=== PATIENT | male | born 1970 | race Caucasian/White ===

== ENCOUNTER 2016-11-22 21:19 | Emergency (ER) | payer MEDICARE ==
[~2016-11-22] VITALS: Ht 180.3 cm; Wt 90.0 kg
[~2016-11-22 21:19] MED LIST: LISI-662 PO; METF500T4 PO; PREG50 PO
[2016-11-22 21:37] LABS: GLUCOSE,POINT OF CARE 194 MG/DL (70-110)
[2016-11-22] MEDS ORDERED: AMOX TR/POT CLAV 875 MG/125 MG TABLET PO ONE (22:30)
[2016-11-22] MEDS ORDERED: HYDROmorphone 2 MG/ML SYRINGE IM ONE (22:30)
[2016-11-22] MEDS ORDERED: BACITRACIN 0.9 GM PACKET OINTMENT TP ONE (22:30)
[2016-11-22 22:38] VITALS: BP 121/78
== END 2016-11-22 22:41 | disposition home or self-care (01) ==
LOC: EMS 21:22
DX: L08.89 Other specified local infections of the skin and subcutaneous tissue (principal); E11.9 Type 2 diabetes mellitus without complications; I10 Essential (primary) hypertension; F17.210 Nicotine dependence, cigarettes, uncomplicated
CPT/HCPCS: 82962; 96372; 99283; J1170

== ENCOUNTER 2016-11-24 18:58 | Emergency (ER) | payer MEDICARE ==
[~2016-11-24] VITALS: Ht 177.8 cm; Wt 90.9 kg
[2016-11-24 19:36] LABS: GLUCOSE,POINT OF CARE 292 MG/DL (70-110)
[2016-11-24] MEDS ORDERED: TraMADol HCL 50 MG TABLET PO ONE (21:15)
[2016-11-24 22:24] VITALS: BP 133/94
== END 2016-11-24 22:31 | disposition home or self-care (01) ==
LOC: EMS 19:05
DX: S81.801A Unspecified open wound, right lower leg, initial encounter (principal); E11.65 Type 2 diabetes mellitus with hyperglycemia; I10 Essential (primary) hypertension; F17.210 Nicotine dependence, cigarettes, uncomplicated; X58.XXXA Exposure to other specified factors, initial encounter; Y93.E1 Activity, personal bathing and showering; Y92.89 Other specified places as the place of occurrence of the external cause; Y99.8 Other external cause status
CPT/HCPCS: 82962; 99283

== ENCOUNTER 2020-11-13 12:59 | Emergency (ER) | payer MEDICARE ==
[~2020-11-13] VITALS: Ht 175.3 cm; Wt 86.4 kg
[~2020-11-13 12:59] MED LIST changes: +AMLO10TA55 PO; +ASPI81TA39 PO; +ATOR40TA28 PO; -LISI-662 PO; +METF-960 PO; -METF500T4 PO; -PREG50 PO
[2020-11-13 13:04] VITALS: BP 126/86
== END 2020-11-13 15:25 | disposition left against medical advice (07) ==
LOC: EMS 13:07
DX: R21 Rash and other nonspecific skin eruption (principal); Z53.21 Procedure and treatment not carried out due to patient leaving prior to being seen by health care provider
CPT/HCPCS: 82962

== ENCOUNTER 2020-11-19 05:04 | Emergency (ER) | payer MEDICARE ==
[~2020-11-19] VITALS: Ht 180.3 cm; Wt 84.1 kg
[2020-11-19 06:25] LABS: GLUCOSE,POINT OF CARE 189 MG/DL (70-110)
[2020-11-19] MEDS ORDERED: DiphenhydrAMINE HCL 50 MG/ML VIAL IVP ONE (06:30)
[2020-11-19] MEDS ORDERED: METOCLOPRAMIDE HCL 5 MG/ML 2 ML VIAL IVP ONE (06:30)
[2020-11-19] MEDS ORDERED: KETOROLAC TROMETHAMINE 30 MG/ML VIAL IVP ONE (06:30)
[2020-11-19] MEDS ORDERED: SODIUM CHLORIDE 0.9% 1,000 ML IV ONE (06:30)
[2020-11-19 07:30] VITALS: BP 145/103
== END 2020-11-19 07:50 | disposition home or self-care (01) ==
LOC: EMS 05:05
DX: R51.9 Headache, unspecified (principal); E11.9 Type 2 diabetes mellitus without complications; I10 Essential (primary) hypertension; G89.29 Other chronic pain; F17.210 Nicotine dependence, cigarettes, uncomplicated; F12.90 Cannabis use, unspecified, uncomplicated; F19.90 Other psychoactive substance use, unspecified, uncomplicated; Z86.73 Personal history of transient ischemic attack (TIA), and cerebral infarction without residual deficits; Z90.89 Acquired absence of other organs; Z79.84 Long term (current) use of oral hypoglycemic drugs; Z79.82 Long term (current) use of aspirin
CPT/HCPCS: 70450; 82962; 96361; 96374; 96375; 99284; J1200; J1885; J2765; J7030

== ENCOUNTER 2022-02-11 02:38 | Emergency (ER) | payer MEDICARE, MEDICAID ==
[~2022-02-11] VITALS: Ht 177.8 cm; Wt 83.4 kg
[~2022-02-11 02:38] MED LIST changes: +METF-1211 PO; -METF-960 PO
[2022-02-11] MEDS ORDERED: ONDANSETRON HCL 4 MG/2 ML VIAL ONE (02:54)
[2022-02-11] MEDS ORDERED: SODIUM CHLORIDE 0.9% 1,000 ML IV ONE ×2 (03:00→03:45)
[2022-02-11] MEDS ORDERED: ONDANSETRON HCL 4 MG/2 ML VIAL IVP ONE (03:00)
[2022-02-11] MEDS ORDERED: IOHEXOL 350 MG/ML 100 ML VIAL ONE (03:11)
[2022-02-11 03:28] LABS: BASOPHILS % (AUTO) 0.1 % (0.0-2.0); EOSINOPHILS % (AUTO) 3.4 % (1.0-6.0); HEMATOCRIT 44.5 % (41-53); HEMOGLOBIN 14.8 g/dL (13.5-17.5); LYMPHOCYTES # (AUTO) 1.1 K/uL (1.0-4.8); LYMPHOCYTES % (AUTO) 24.4 % (22.0-44.0); MEAN CORPUSCULAR HEMOGLOBIN 31.6 pg (26.0-34.0); MEAN CORPUSCULAR HGB CONC 33.4 G/dL (31.0-37.0); MEAN CORPUSCULAR VOLUME 95 fL (80-100); MONOCYTES # (AUTO) 0.7 K/uL (0.1-1.0); MONOCYTES % (AUTO) 15.7 % (2.0-9.0); NEUTROPHILS # (AUTO) 2.6 K/uL (1.8-7.7); NEUTROPHILS % (AUTO) 56.4 % (40.0-70.0); PLATELET COUNT (AUTO) 245 K/uL (150-450); RED BLOOD CELL COUNT(AUTO) 4.69 MIL/uL (4.50-5.90); RED CELL DISTRIBUTION WIDTH 13.8 % (11.5-14.5)
[2022-02-11 03:37] LABS: INR 1.1 (0.9-1.1); PROTHROMBIN TIME 11.8 SEC (9.4-11.6)
[2022-02-11 03:42] LABS: ANION GAP 5 mmol/L (8-16); CALCIUM, TOTAL 9.2 mg/dL (8.8-10.5); CARBON DIOXIDE 28 mmol/L (22-29); CHLORIDE 103 mmol/L (98-107); CREATININE 1.27 mg/dL (0.60-1.30); GLUCOSE,RANDOM 205 mg/dL (70-110); POTASSIUM 3.7 mmol/L (3.5-5.1); SODIUM SERUM 136 mmol/L (136-145); UREA NITROGEN, BLOOD 13 mg/dL (7-18)
[2022-02-11 03:43] LABS: GLOMERULAR FILTR. RATE CALC > 60 mL/min (>60)
[2022-02-11] MEDS ORDERED: HYDROmorphone HCL 2 MG/ML SYRINGE IVP ONE (03:45)
[2022-02-11 03:50] LABS: ALANINE AMINOTRANSFERASE 42 U/L (12-78); ALBUMIN 3.8 g/dL (3.4-5.0); ALKALINE PHOSPHATASE 82 U/L (46-116); ASPARTATE AMINOTRANSFERASE 26 U/L (15-37); BILIRUBIN,TOTAL 0.2 mg/dL (0.1-1.0); TOTAL PROTEIN, SERUM 7.8 g/dL (6.4-8.2)
[2022-02-11 05:20] LABS: COVID AG,FIA SOURCE NASAL SWAB
[2022-02-11 05:32] LABS: AMPHET/METH SCREEN,URINE POSITIVE (NEGATIVE); BARBITURATE SCREEN, URINE NEGATIVE (NEGATIVE); BENZODIAZEPINES SCREEN,URINE NEGATIVE (NEGATIVE); CANNABINOID SCREEN,URINE POSITIVE (NEGATIVE); COCAINE SCREEN,URINE NEGATIVE (NEGATIVE); METHADONE SCREEN, URINE NEGATIVE (NEGATIVE); OPIATE SCREEN,URINE POSITIVE (NEGATIVE)
[2022-02-11 05:52] LABS: APPEARANCE,URINE CLEAR (CLEAR)
[2022-02-11 05:53] LABS: PROTEIN,URINE NEGATIVE (NEGATIVE); SPECIFIC GRAVITIY, URINE 1.005 (1.003-1.030)
[2022-02-11 05:54] LABS: GLUCOSE, URINE (UA) NEGATIVE (NEGATIVE)
[2022-02-11 05:55] LABS: BILIRUBIN,URINE NEGATIVE (NEGATIVE); KETONES,URINE NEGATIVE (NEGATIVE)
[2022-02-11 05:56] LABS: LEUKOCYTE ESTERASE ,URINE SMALL (NEGATIVE); NITRATE,URINE NEGATIVE (NEGATIVE); UROBILINOGEN,URINE <=1.0 mg/dL (<=1.0)
[2022-02-11 06:00] LABS: BACTERIA,URINE Rare /HPF (None Seen); OCCULT BLOOD,URINE NEGATIVE (NEGATIVE); RBC,URINE None Seen /HPF (0-2); SQUAMOUS EPITHELIAL CELL,UR Few /LPF (None Seen); WBC,URINE 0-2 /HPF (0-5)
[2022-02-11] MEDS ORDERED: ASPIRIN 325 MG TABLET PO ONE (06:00)
[2022-02-11 06:02] LABS: PHENCYCLIDINE SCREEN,URINE NEGATIVE (NEGATIVE)
[2022-02-11] MEDS ORDERED: METOCLOPRAMIDE HCL 5 MG/ML 2 ML VIAL IVP ONE (06:15)
[2022-02-11 07:05] VITALS: BP 149/92
[2022-02-11] MEDS ORDERED: OXYGEN THERAPY IH SCH (08:00)
== END 2022-02-11 08:30 | disposition short-term general hospital (02) ==
LOC: EMS 02:39
DX: R41.82 Altered mental status, unspecified (principal); Z20.822 Contact with and (suspected) exposure to COVID-19; E11.65 Type 2 diabetes mellitus with hyperglycemia; F10.20 Alcohol dependence, uncomplicated; F12.90 Cannabis use, unspecified, uncomplicated; F15.10 Other stimulant abuse, uncomplicated; F17.210 Nicotine dependence, cigarettes, uncomplicated; I10 Essential (primary) hypertension; K21.9 Gastro-esophageal reflux disease without esophagitis; R53.1 Weakness; K52.9 Noninfective gastroenteritis and colitis, unspecified; R11.10 Vomiting, unspecified; R29.810 Facial weakness; R10.84 Generalized abdominal pain; Z86.73 Personal history of transient ischemic attack (TIA), and cerebral infarction without residual deficits; Z90.49 Acquired absence of other specified parts of digestive tract
CPT/HCPCS: 99291; 71250; 96374; 71045; 96375; 96361; 87426; 80053; 81001; 84484; 85025; 85610; 85730; 36415; 74150; 70496; 70498; 82948; 93005; 70450; 72192; 80307 ×2; J1170; J2765; J2405; Q9967; J7030

== ENCOUNTER 2022-02-26 23:49 | Emergency (ER) | payer MEDICARE, MEDICAID ==
[~2022-02-26] VITALS: Ht 180.3 cm; Wt 82.0 kg
[2022-02-27] MEDS ORDERED: BUPR300T53 PO (00:08)
[2022-02-27] MEDS ORDERED: LISI-893 PO (00:09)
[2022-02-27 00:12] LABS: BASOPHILS % (AUTO) 0.1 % (0.0-2.0); EOSINOPHILS % (AUTO) 7.9 % (1.0-6.0); HEMATOCRIT 47.5 % (41-53); HEMOGLOBIN 16.1 g/dL (13.5-17.5); LYMPHOCYTES # (AUTO) 1.6 K/uL (1.0-4.8); LYMPHOCYTES % (AUTO) 29.5 % (22.0-44.0); MEAN CORPUSCULAR HEMOGLOBIN 31.7 pg (26.0-34.0); MEAN CORPUSCULAR HGB CONC 33.9 G/dL (31.0-37.0); MEAN CORPUSCULAR VOLUME 94 fL (80-100); MONOCYTES # (AUTO) 0.8 K/uL (0.1-1.0); MONOCYTES % (AUTO) 14.9 % (2.0-9.0); NEUTROPHILS # (AUTO) 2.5 K/uL (1.8-7.7); NEUTROPHILS % (AUTO) 47.6 % (40.0-70.0); PLATELET COUNT (AUTO) 243 K/uL (150-450); RED BLOOD CELL COUNT(AUTO) 5.07 MIL/uL (4.50-5.90)
[2022-02-27 00:23] LABS: ANION GAP 10 mmol/L (8-16); CALCIUM, TOTAL 9.2 mg/dL (8.8-10.5); CARBON DIOXIDE 28 mmol/L (22-29); CHLORIDE 101 mmol/L (98-107); CREATININE 1.39 mg/dL (0.60-1.30); GLUCOSE,RANDOM 199 mg/dL (70-110); SODIUM SERUM 139 mmol/L (136-145); UREA NITROGEN, BLOOD 23 mg/dL (7-18)
[2022-02-27] MEDS ORDERED: METO25TA3 PO (00:26)
[2022-02-27] MEDS ORDERED: SILD50TA PO (00:26)
[2022-02-27 00:27] LABS: GLOMERULAR FILTR. RATE CALC > 60 mL/min (>60)
[2022-02-27 00:29] LABS: ALANINE AMINOTRANSFERASE 39 U/L (12-78); ALBUMIN 3.9 g/dL (3.4-5.0); ALKALINE PHOSPHATASE 83 U/L (46-116); ASPARTATE AMINOTRANSFERASE 24 U/L (15-37); BILIRUBIN,TOTAL 0.4 mg/dL (0.1-1.0); INR 1.1 (0.9-1.1); PROTHROMBIN TIME 11.3 SEC (9.4-11.6); TOTAL PROTEIN, SERUM 8.4 g/dL (6.4-8.2)
[2022-02-27] MEDS ORDERED: MORPHINE SULFATE 4 MG/ML SYRINGE IVP ONE ×2 (01:30→02:15)
[2022-02-27] MEDS ORDERED: ONDANSETRON HCL 4 MG/2 ML VIAL IVP ONE ×2 (01:30→04:00)
[2022-02-27 01:39] LABS: COVID AG,FIA SOURCE NASAL SWAB
[2022-02-27] MEDS ORDERED: ACETAMINOPHEN 325 MG TABLET PO PRN (01:45)
[2022-02-27] MEDS ORDERED: ONDANSETRON HCL 4 MG/2 ML VIAL IVP PRN (01:45)
[2022-02-27] MEDS ORDERED: CefTRIAXone 1 GM/DEXTROSE 50 ML IV SCH (02:00)
[2022-02-27] MEDS ORDERED: INSULIN LISPRO 100 UNITS/ML SQ PRN (02:00)
[2022-02-27] MEDS ORDERED: DEXTROSE 50%-WATER 25 GM/50 ML SYRINGE IVP PRN (02:00)
[2022-02-27] MEDS ORDERED: AZITHROMYCIN 500 MG/NS 250 ML IV SCH (03:00)
[2022-02-27 05:24] VITALS: BP 124/66
[2022-02-27] MEDS ORDERED: HEPARIN SODIUM,PORCINE 5,000 UNITS/ML VIAL SQ SCH (08:00)
[2022-02-27] MEDS ORDERED: BuPROPion HCL XL 150 MG ER TABLET PO SCH (09:00)
[2022-02-27] MEDS ORDERED: AmLODIPine BESYLATE 10 MG TABLET PO SCH (09:00)
[2022-02-27] MEDS ORDERED: ATORVASTATIN CALCIUM 40 MG TABLET PO SCH (09:00)
[2022-02-27] MEDS ORDERED: ASPIRIN 81 MG CHEWABLE TABLET PO SCH (09:00)
[2022-02-27] MEDS ORDERED: METOPROLOL SUCCINATE 25 MG ER TABLET PO SCH (09:00)
[2022-02-27] MEDS ORDERED: INSULIN GLARGINE,HUM.REC.ANLOG 100 UNITS/ML SQ SCH (21:00)
== END 2022-02-27 05:55 | disposition short-term general hospital (02) ==
LOC: EMS 23:49
DX: I63.9 Cerebral infarction, unspecified (principal); I10 Essential (primary) hypertension; E11.9 Type 2 diabetes mellitus without complications; G43.909 Migraine, unspecified, not intractable, without status migrainosus; F17.210 Nicotine dependence, cigarettes, uncomplicated; F12.90 Cannabis use, unspecified, uncomplicated; F15.90 Other stimulant use, unspecified, uncomplicated; Z90.49 Acquired absence of other specified parts of digestive tract; Z98.890 Other specified postprocedural states
CPT/HCPCS: 80053; 83605; 83880; 84484; 85025; 85610; 85730; 87040; 86850; 86900; 86901; 36415; 71045; 70496; 70498; 82948; 93005; 99291; 87426; 70450; 82962; 71250; 72192; 74150; 96365; 96367; 96375; J0456; J0696; J2270; J2405

== ENCOUNTER 2022-07-01 21:29 | Emergency (ER) | payer MEDICARE, MEDICAID ==
[~2022-07-01] VITALS: Ht 185.4 cm; Wt 80.3 kg
[~2022-07-01 21:29] MED LIST changes: +BUPR300T53 PO; +LISI-893 PO; +METO25TA3 PO; +SILD50TA PO
[2022-07-01] MEDS ORDERED: NALOXONE HCL 1 MG/ML 2 ML SYRINGE IM ONE (21:45)
[2022-07-01] MEDS ORDERED: LABETALOL HCL 5 MG/ML 20 ML VIAL IVP PRN ×2 (21:45)
[2022-07-01] MEDS ORDERED: ONDANSETRON HCL 4 MG/2 ML VIAL IVP ONE (21:45)
[2022-07-01] MEDS ORDERED: SODIUM CHLORIDE 0.9% 1,000 ML IV ONE (21:45)
[2022-07-01 22:02] LABS: BASOPHILS % (AUTO) 0.2 % (0.0-2.0); EOSINOPHILS % (AUTO) 1.7 % (1.0-6.0); HEMATOCRIT 48.8 % (41-53); HEMOGLOBIN 16.5 g/dL (13.5-17.5); LYMPHOCYTES # (AUTO) 1.4 K/uL (1.0-4.8); LYMPHOCYTES % (AUTO) 17.4 % (22.0-44.0); MEAN CORPUSCULAR HEMOGLOBIN 31.9 pg (26.0-34.0); MEAN CORPUSCULAR HGB CONC 33.7 G/dL (31.0-37.0); MEAN CORPUSCULAR VOLUME 95 fL (80-100); MONOCYTES # (AUTO) 0.8 K/uL (0.1-1.0); MONOCYTES % (AUTO) 9.7 % (2.0-9.0); NEUTROPHILS # (AUTO) 5.7 K/uL (1.8-7.7); PLATELET COUNT (AUTO) 186 K/uL (150-450); RED BLOOD CELL COUNT(AUTO) 5.16 MIL/uL (4.50-5.90); RED CELL DISTRIBUTION WIDTH 13.6 % (11.5-14.5)
[2022-07-01 22:14] LABS: ANION GAP 8 mmol/L (8-16); CALCIUM, TOTAL 9.4 mg/dL (8.8-10.5); CARBON DIOXIDE 29 mmol/L (22-29); CHLORIDE 101 mmol/L (98-107); CREATININE 1.17 mg/dL (0.60-1.30); GLOMERULAR FILTR. RATE CALC > 60 mL/min (>60); GLUCOSE,RANDOM 127 mg/dL (70-110); POTASSIUM 3.9 mmol/L (3.5-5.1); PROTHROMBIN TIME 10.7 SEC (9.4-11.6); SODIUM SERUM 138 mmol/L (136-145)
[2022-07-01 22:38] LABS: ALANINE AMINOTRANSFERASE 38 U/L (12-78); ALBUMIN 4.2 g/dL (3.4-5.0); ALKALINE PHOSPHATASE 68 U/L (46-116); ASPARTATE AMINOTRANSFERASE 22 U/L (15-37); BILIRUBIN,TOTAL 0.7 mg/dL (0.1-1.0); CREATINE KINASE, TOTAL ONLY 221 U/L (39-308); TOTAL PROTEIN, SERUM 8.8 g/dL (6.4-8.2)
[2022-07-01] MEDS ORDERED: ASPIRIN 81 MG CHEWABLE TABLET PO ONE (22:45)
[2022-07-02 02:52] LABS: COVID AG,FIA SOURCE NASOPHARYNGEAL
[2022-07-02 03:05] LABS: APPEARANCE,URINE CLEAR (CLEAR); BILIRUBIN,URINE NEGATIVE (NEGATIVE); GLUCOSE, URINE (UA) NEGATIVE (NEGATIVE); LEUKOCYTE ESTERASE ,URINE NEGATIVE (NEGATIVE); NITRATE,URINE NEGATIVE (NEGATIVE); OCCULT BLOOD,URINE NEGATIVE (NEGATIVE); PROTEIN,URINE 30-70 mg/dL (NEGATIVE); UROBILINOGEN,URINE <=1.0 mg/dL (<=1.0)
[2022-07-02 03:09] VITALS: BP 129/93
[2022-07-02 03:12] LABS: AMPHET/METH SCREEN,URINE POSITIVE (NEGATIVE); BARBITURATE SCREEN, URINE NEGATIVE (NEGATIVE); BENZODIAZEPINES SCREEN,URINE NEGATIVE (NEGATIVE); CANNABINOID SCREEN,URINE NEGATIVE (NEGATIVE); COCAINE SCREEN,URINE NEGATIVE (NEGATIVE); METHADONE SCREEN, URINE NEGATIVE (NEGATIVE); OPIATE SCREEN,URINE NEGATIVE (NEGATIVE); PHENCYCLIDINE SCREEN,URINE POSITIVE (NEGATIVE)
[2022-07-02 03:17] LABS: BACTERIA,URINE None Seen /HPF (None Seen); RBC,URINE 0-2 /HPF (0-2); WBC,URINE 0-2 /HPF (0-5)
[2022-07-02 03:18] LABS: AMORPHOUS SEDIMENT,UR Few /LPF (None Seen); SQUAMOUS EPITHELIAL CELL,UR Few /LPF (None Seen)
== END 2022-07-02 05:31 | disposition short-term general hospital (02) ==
LOC: EMS 21:30
DX: G45.9 Transient cerebral ischemic attack, unspecified (principal); E11.9 Type 2 diabetes mellitus without complications; I10 Essential (primary) hypertension; G89.29 Other chronic pain; F17.210 Nicotine dependence, cigarettes, uncomplicated; F12.90 Cannabis use, unspecified, uncomplicated; F15.90 Other stimulant use, unspecified, uncomplicated; Z90.49 Acquired absence of other specified parts of digestive tract; Z98.890 Other specified postprocedural states
CPT/HCPCS: 99291; 70496; 96374; 71045; 96361; 87426; 80053; 81001; 82550; 84484; 85025; 85610; 85730; 86850; 86900; 86901; 36415; 70498; 82948; 93005; 96372; 70450; 80307 ×2; G0480; J2310; J2405; J7030

== ENCOUNTER 2022-08-02 12:30 | Inpatient (IN) | payer MEDICARE, MEDICAID ==
[~2022-08-02] VITALS: Ht 190.5 cm; Wt 85.8 kg
[2022-08-02] MEDS ORDERED: ONDANSETRON HCL 4 MG/2 ML VIAL ONE (12:35)
[2022-08-02] MEDS ORDERED: NALOXONE HCL 1 MG/ML 2 ML SYRINGE ONE (12:36)
[2022-08-02] MEDS ORDERED: SODIUM CHLORIDE 0.9% 100 ML ONE ×3 (12:37→13:08)
[2022-08-02] MEDS ORDERED: IOHEXOL 350 MG/ML 100 ML VIAL ONE ×3 (12:37→13:08)
[2022-08-02] MEDS ORDERED: PANT40TA54 PO (12:38)
[2022-08-02] MEDS ORDERED: ASPI-1444 PO (12:38)
[2022-08-02] MEDS ORDERED: ALBU18HF12 IH (12:38)
[2022-08-02] MEDS ORDERED: ONDANSETRON HCL 4 MG/2 ML VIAL IVP ONE (12:45)
[2022-08-02] MEDS ORDERED: NALOXONE HCL 1 MG/ML 2 ML SYRINGE IVP ONE (12:45)
[2022-08-02 13:00] LABS: BASOPHILS % (AUTO) 0.1 % (0.0-2.0); HEMATOCRIT 46.8 % (41-53); HEMOGLOBIN 15.6 g/dL (13.5-17.5); LYMPHOCYTES # (AUTO) 1.4 K/uL (1.0-4.8); LYMPHOCYTES % (AUTO) 7.7 % (22.0-44.0); MEAN CORPUSCULAR HEMOGLOBIN 31.8 pg (26.0-34.0); MEAN CORPUSCULAR HGB CONC 33.4 G/dL (31.0-37.0); MEAN CORPUSCULAR VOLUME 95 fL (80-100); MONOCYTES # (AUTO) 1.6 K/uL (0.1-1.0); MONOCYTES % (AUTO) 8.3 % (2.0-9.0); NEUTROPHILS # (AUTO) 15.6 K/uL (1.8-7.7); NEUTROPHILS % (AUTO) 82.9 % (40.0-70.0); PLATELET COUNT (AUTO) 188 K/uL (150-450); RED BLOOD CELL COUNT(AUTO) 4.92 MIL/uL (4.50-5.90); RED CELL DISTRIBUTION WIDTH 13.7 % (11.5-14.5)
[2022-08-02 13:10] LABS: ANION GAP 9 mmol/L (8-16); CALCIUM, TOTAL 9.5 mg/dL (8.8-10.5); CARBON DIOXIDE 28 mmol/L (22-29); CHLORIDE 100 mmol/L (98-107); CREATININE 1.16 mg/dL (0.60-1.30); GLOMERULAR FILTR. RATE CALC > 60 mL/min (>60); GLUCOSE,RANDOM 268 mg/dL (70-110); POTASSIUM 3.9 mmol/L (3.5-5.1); SODIUM SERUM 137 mmol/L (136-145)
[2022-08-02 13:15] LABS: PROTHROMBIN TIME 10.3 SEC (9.4-11.6)
[2022-08-02 13:20] LABS: B-TYPE NATRIURETIC PEPTIDE 23 pg/mL (0-100)
[2022-08-02 13:25] LABS: LACTIC ACID 1.3 mmol/L (0.4-2.0)
[2022-08-02 13:27] LABS: ALANINE AMINOTRANSFERASE 26 U/L (12-78); ALKALINE PHOSPHATASE 71 U/L (46-116); ASPARTATE AMINOTRANSFERASE 19 U/L (15-37); BILIRUBIN,TOTAL 0.4 mg/dL (0.1-1.0); CREATINE KINASE, TOTAL ONLY 265 U/L (39-308); LIPASE 337 U/L (73-393); TOTAL PROTEIN, SERUM 8.2 g/dL (6.4-8.2)
[2022-08-02] MEDS: OXYGEN THERAPY IH SCH ×2 (13:42→20:42)
[2022-08-02] MEDS ORDERED: LORazepam 2 MG/ML VIAL IVP ONE (14:15)
[2022-08-02] MEDS ORDERED: METOCLOPRAMIDE HCL 5 MG/ML 2 ML VIAL IVP ONE (14:30)
[2022-08-02] MEDS ORDERED: SODIUM CHLORIDE 0.9% 1,000 ML IV ONE ×2 (14:30→15:30)
[2022-08-02] MEDS ORDERED: HydrALAZINE HCL 20 MG/ML VIAL IVP PRN (15:30)
[2022-08-02] MEDS ORDERED: ONDANSETRON HCL 4 MG/2 ML VIAL IVP PRN (15:30)
[2022-08-02] MEDS ORDERED: ACETAMINOPHEN 325 MG TABLET PO PRN (15:30)
[2022-08-02] MEDS ORDERED: DEXTROSE 50%-WATER 25 GM/50 ML SYRINGE IVP PRN ×2 (15:30)
[2022-08-02] MEDS ORDERED: INSULIN LISPRO 100 UNITS/ML SQ PRN (15:30)
[2022-08-02 16:00] VITALS: BP 137/75; PULSE 107; RESP 16; TEMP 98.9
[2022-08-02] MEDS ORDERED: PIPERACILLIN/TAZO 3.375 GM/D5W 50 ML IV ONE (16:00)
[2022-08-02] MEDS ORDERED: SODIUM CHLORIDE 0.9% 250 ML IV ONE (17:12)
[2022-08-02] MEDS: INSULIN LISPRO 100 UNITS/ML SQ PRN ×2 (17:13→20:45)
[2022-08-02] MEDS: HEPARIN SODIUM,PORCINE 5,000 UNITS/ML VIAL SQ SCH ×2 (17:15→23:43)
[2022-08-02 18:11] LABS: GLUCOSE,POINT OF CARE 212 MG/DL (70-110)
[2022-08-02 19:17] LABS: COVID AG,FIA SOURCE NASOPHARYNGEAL
[2022-08-02 20:00] VITALS: BP 156/88; PULSE 109; RESP 19; TEMP 98.9
[2022-08-02] MEDS: DOCUSATE SODIUM 100 MG CAPSULE PO SCH ×2 (20:43→21:00)
[2022-08-03] VITALS: BP 135/77; PULSE 94; RESP 20; TEMP 99
[2022-08-03] MEDS: PIPERACILLIN/TAZO 3.375 GM/D5W 50 ML IV SCH ×2 (01:08→06:02)
[2022-08-03 03:31] LABS: GLUCOSE,POINT OF CARE 155 MG/DL (70-110)
[2022-08-03 04:00] VITALS: BP 154/90; PULSE 70; RESP 17; TEMP 98.8
[2022-08-03 05:39] LABS: BASOPHILS % (AUTO) 0.4 % (0.0-2.0); EOSINOPHILS % (AUTO) 1.1 % (1.0-6.0); HEMATOCRIT 43.8 % (41-53); HEMOGLOBIN 14.9 g/dL (13.5-17.5); LYMPHOCYTES # (AUTO) 1.4 K/uL (1.0-4.8); LYMPHOCYTES % (AUTO) 18.1 % (22.0-44.0); MEAN CORPUSCULAR HEMOGLOBIN 32.6 pg (26.0-34.0); MEAN CORPUSCULAR VOLUME 96 fL (80-100); MONOCYTES # (AUTO) 0.8 K/uL (0.1-1.0); MONOCYTES % (AUTO) 9.7 % (2.0-9.0); NEUTROPHILS # (AUTO) 5.5 K/uL (1.8-7.7); NEUTROPHILS % (AUTO) 70.7 % (40.0-70.0); PLATELET COUNT (AUTO) 163 K/uL (150-450); RED BLOOD CELL COUNT(AUTO) 4.57 MIL/uL (4.50-5.90)
[2022-08-03 06:03] LABS: ALANINE AMINOTRANSFERASE 19 U/L (12-78); ALBUMIN 3.4 g/dL (3.4-5.0); ALKALINE PHOSPHATASE 59 U/L (46-116); ANION GAP 11 mmol/L (8-16); ASPARTATE AMINOTRANSFERASE 17 U/L (15-37); BILIRUBIN,TOTAL 0.6 mg/dL (0.1-1.0); CALCIUM, TOTAL 8.7 mg/dL (8.8-10.5); CARBON DIOXIDE 25 mmol/L (22-29); CHLORIDE 104 mmol/L (98-107); CREATININE 0.99 mg/dL (0.60-1.30); GLOMERULAR FILTR. RATE CALC > 60 mL/min (>60); GLUCOSE,RANDOM 138 mg/dL (70-110); POTASSIUM 3.6 mmol/L (3.5-5.1); SODIUM SERUM 140 mmol/L (136-145); TOTAL PROTEIN, SERUM 7.2 g/dL (6.4-8.2)
[2022-08-03 06:31] LABS: GLUCOSE,POINT OF CARE 115 MG/DL (70-110)
[2022-08-03 08:00] VITALS: BP 139/54; PULSE 103; RESP 26; TEMP 97.2
[2022-08-03] MEDS ORDERED: PANTOPRAZOLE SODIUM 40 MG/VIAL IVP SCH (09:00)
[2022-08-03] MEDS ORDERED: ATORVASTATIN CALCIUM 20 MG TABLET PO SCH (09:00)
[2022-08-03] MEDS ORDERED: ASPIRIN 81 MG CHEWABLE TABLET PO SCH (09:00)
[2022-08-03] MEDS: HEPARIN SODIUM,PORCINE 5,000 UNITS/ML VIAL SQ SCH (09:49)
[2022-08-03] MEDS: DOCUSATE SODIUM 100 MG CAPSULE PO SCH (09:50)
[2022-08-03 10:57] LABS: APPEARANCE,URINE CLEAR (CLEAR); BILIRUBIN,URINE NEGATIVE (NEGATIVE); GLUCOSE, URINE (UA) NEGATIVE (NEGATIVE); KETONES,URINE NEGATIVE (NEGATIVE); LEUKOCYTE ESTERASE ,URINE NEGATIVE (NEGATIVE); NITRATE,URINE NEGATIVE (NEGATIVE); OCCULT BLOOD,URINE NEGATIVE (NEGATIVE); PH,URINE 5.5 (5.0-8.0); PROTEIN,URINE TRACE mg/dL (NEGATIVE); UROBILINOGEN,URINE <=1.0 mg/dL (<=1.0)
[2022-08-03 11:04] LABS: AMPHET/METH SCREEN,URINE POSITIVE (NEGATIVE); BARBITURATE SCREEN, URINE NEGATIVE (NEGATIVE); BENZODIAZEPINES SCREEN,URINE NEGATIVE (NEGATIVE); CANNABINOID SCREEN,URINE NEGATIVE (NEGATIVE); COCAINE SCREEN,URINE NEGATIVE (NEGATIVE); METHADONE SCREEN, URINE NEGATIVE (NEGATIVE); OPIATE SCREEN,URINE NEGATIVE (NEGATIVE); PHENCYCLIDINE SCREEN,URINE NEGATIVE (NEGATIVE); SPECIFIC GRAVITIY, URINE > 1.030 (1.003-1.030)
[2022-08-03 11:14] LABS: BACTERIA,URINE None Seen /HPF (None Seen); RBC,URINE None Seen /HPF (0-2); WBC,URINE None Seen /HPF (0-5)
[2022-08-03 12:00] VITALS: BP 165/89; PULSE 94; RESP 18; TEMP 98.7
[2022-08-03] MEDS ORDERED: AmLODIPine BESYLATE 10 MG TABLET PO ONE (12:30)
[2022-08-03 13:15] VITALS: PULSE 94
[2022-08-04] MEDS ORDERED: MAG30ORA11 PO (18:20)
== END 2022-08-03 13:10 | disposition home or self-care (01) | DRG 91 ==
LOC: EMS 12:38 → ICU 14:49
PROVIDERS: ADMIT Internal Medicine; ATTEND Internal Medicine
DX: G92.9 Unspecified toxic encephalopathy (principal); J69.0 Pneumonitis due to inhalation of food and vomit; I10 Essential (primary) hypertension; F19.10 Other psychoactive substance abuse, uncomplicated; G89.29 Other chronic pain; Z20.822 Contact with and (suspected) exposure to COVID-19; E11.9 Type 2 diabetes mellitus without complications; Z87.891 Personal history of nicotine dependence; Z79.82 Long term (current) use of aspirin; Z79.84 Long term (current) use of oral hypoglycemic drugs; Z79.899 Other long term (current) drug therapy; Z90.49 Acquired absence of other specified parts of digestive tract; I69.334 Monoplegia of upper limb following cerebral infarction affecting left non-dominant side; Z95.2 Presence of prosthetic heart valve
CPT/HCPCS: 70496; 70498; 71045; 80053; 80307; 81001; 82550; 82962; 83605; 83690; 83880; 85025; 85610; 87040; 87081; 92523; 92610; 93005; 93306; 97166; 97535; 99285; 99291; C9113; G0378; G0480; J1644; J2060; J2310; J2405; J2543; J2765; J7030; J7050; Q9967; 36415-L1; 36415-TC; 70450; 70450-TC

== ENCOUNTER 2022-08-04 16:46 | Emergency (ER) | payer MEDICARE, MEDICAID ==
[~2022-08-04] VITALS: Ht 177.8 cm; Wt 86.4 kg
[~2022-08-04 16:46] MED LIST changes: +ALBU18HF12 IH; +ASPI-1444 PO; -ASPI81TA39 PO; +PANT40TA54 PO
[2022-08-04 16:49] VITALS: TEMP 98.5
[2022-08-04 17:05] VITALS: BP 161/80; PULSE 67; RESP 16
[2022-08-04] MEDS ORDERED: PB/HYOSCY/ATR/SCOP/LIDO/MAALOX 55 ML BOTTLE PO ONE (17:15)
[2022-08-04] MEDS ORDERED: ONDANSETRON HCL 4 MG TABLET PO ONE (17:15)
[2022-08-04] MEDS ORDERED: MAG30ORA11 PO (18:20)
== END 2022-08-04 18:28 | disposition home or self-care (01) ==
LOC: EMS 16:47
DX: K21.9 Gastro-esophageal reflux disease without esophagitis (principal); E11.9 Type 2 diabetes mellitus without complications; I10 Essential (primary) hypertension; I63.9 Cerebral infarction, unspecified; G89.29 Other chronic pain; F15.90 Other stimulant use, unspecified, uncomplicated
CPT/HCPCS: 99283; 82962; Q0162

== ENCOUNTER 2023-03-15 03:41 | Emergency (ER) | payer MEDICARE, MEDICAID ==
[~2023-03-15] VITALS: Ht 177.8 cm; Wt 82.4 kg
[~2023-03-15 03:41] MED LIST changes: +MAG30ORA11 PO
[2023-03-15 04:00] LABS: BASOPHILS % (AUTO) 0.3 % (0.0-2.0); HEMOGLOBIN 15.3 g/dL (13.5-17.5); LYMPHOCYTES # (AUTO) 1.1 K/uL (1.0-4.8); LYMPHOCYTES % (AUTO) 17.9 % (22.0-44.0); MEAN CORPUSCULAR HGB CONC 33.9 G/dL (31.0-37.0); MEAN CORPUSCULAR VOLUME 94 fL (80-100); MONOCYTES # (AUTO) 0.7 K/uL (0.1-1.0); MONOCYTES % (AUTO) 11.8 % (2.0-9.0); NEUTROPHILS # (AUTO) 4.4 K/uL (1.8-7.7); PLATELET COUNT (AUTO) 176 K/uL (150-450); RED BLOOD CELL COUNT(AUTO) 4.76 MIL/uL (4.50-5.90); RED CELL DISTRIBUTION WIDTH 14.3 % (11.5-14.5); WHITE BLOOD COUNT (AUTO) 6.3 K/uL (4.5-11.0)
[2023-03-15] MEDS ORDERED: NiCARDipine HCL 25 MG in SODIUM CHLORIDE 0.9% 240 ML IV PRN (04:00)
[2023-03-15] MEDS ORDERED: HYDROmorphone HCL 2 MG/ML SYRINGE IVP ONE (04:00)
[2023-03-15] MEDS ORDERED: LABETALOL HCL 5 MG/ML 20 ML VIAL IVP PRN ×3 (04:00)
[2023-03-15 04:03] LABS: ANION GAP 5 mmol/L (8-16); CALCIUM, TOTAL 9.3 mg/dL (8.8-10.5); CARBON DIOXIDE 30 mmol/L (22-29); CHLORIDE 101 mmol/L (98-107); GLOMERULAR FILTR. RATE CALC > 60 mL/min (>60); GLUCOSE,RANDOM 223 mg/dL (70-110); POTASSIUM 4.8 mmol/L (3.5-5.1); SODIUM SERUM 136 mmol/L (136-145); UREA NITROGEN, BLOOD 15 mg/dL (7-18)
[2023-03-15] MEDS ORDERED: SODIUM CHLORIDE 0.9% 100 ML ONE (04:05)
[2023-03-15] MEDS ORDERED: IOHEXOL 350 MG/ML 100 ML VIAL ONE (04:05)
[2023-03-15 04:07] LABS: PROTHROMBIN TIME 10.4 SEC (9.4-11.6)
[2023-03-15 04:13] LABS: ALANINE AMINOTRANSFERASE 28 U/L (12-78); ALBUMIN 3.9 g/dL (3.4-5.0); ALKALINE PHOSPHATASE 79 U/L (46-116); ASPARTATE AMINOTRANSFERASE 30 U/L (15-37); BILIRUBIN,TOTAL 0.5 mg/dL (0.1-1.0); TOTAL PROTEIN, SERUM 8.1 g/dL (6.4-8.2)
[2023-03-15] MEDS ORDERED: ONDANSETRON HCL 4 MG/2 ML VIAL IVP ONE ×2 (04:15→08:00)
[2023-03-15 04:17] LABS: TROPONIN I-HIGH SENSITIVITY 17 ng/L (<76)
[2023-03-15 07:19] VITALS: TEMP 98.7
[2023-03-15 08:23] VITALS: BP 159/84; PULSE 83; RESP 16
== END 2023-03-15 08:36 | disposition short-term general hospital (02) ==
LOC: EMS 03:42
DX: I16.0 Hypertensive urgency (principal); R11.2 Nausea with vomiting, unspecified; I63.9 Cerebral infarction, unspecified; R47.1 Dysarthria and anarthria; R10.9 Unspecified abdominal pain; E11.9 Type 2 diabetes mellitus without complications; G89.29 Other chronic pain; F17.210 Nicotine dependence, cigarettes, uncomplicated; F12.90 Cannabis use, unspecified, uncomplicated; F15.90 Other stimulant use, unspecified, uncomplicated; Z90.49 Acquired absence of other specified parts of digestive tract; Z98.890 Other specified postprocedural states
CPT/HCPCS: 99285; 70496; 96374; 71045; 96375; 80053; 84484; 85025; 85610; 85730; 86850; 86900; 86901; 36415; 70498; 74176; 82948; 93005; 96376; 70450; J1170; J3490; J2405; Q9967; J7050

== ENCOUNTER 2023-03-29 21:27 | Emergency (ER) | payer MEDICARE, MEDICAID ==
[~2023-03-29] VITALS: Ht 177.8 cm; Wt 81.8 kg
[2023-03-29 22:09] LABS: BASOPHILS % (AUTO) 0.4 % (0.0-2.0); HEMATOCRIT 45.6 % (41-53); HEMOGLOBIN 15.4 g/dL (13.5-17.5); LYMPHOCYTES # (AUTO) 1.4 K/uL (1.0-4.8); LYMPHOCYTES % (AUTO) 23.8 % (22.0-44.0); MEAN CORPUSCULAR HEMOGLOBIN 31.7 pg (26.0-34.0); MEAN CORPUSCULAR HGB CONC 33.8 G/dL (31.0-37.0); MEAN CORPUSCULAR VOLUME 94 fL (80-100); MONOCYTES # (AUTO) 0.5 K/uL (0.1-1.0); MONOCYTES % (AUTO) 8.1 % (2.0-9.0); NEUTROPHILS # (AUTO) 3.7 K/uL (1.8-7.7); NEUTROPHILS % (AUTO) 64.7 % (40.0-70.0); PLATELET COUNT (AUTO) 236 K/uL (150-450); RED BLOOD CELL COUNT(AUTO) 4.86 MIL/uL (4.50-5.90); RED CELL DISTRIBUTION WIDTH 14.3 % (11.5-14.5); WHITE BLOOD COUNT (AUTO) 5.8 K/uL (4.5-11.0)
[2023-03-29 22:20] LABS: ANION GAP 9 mmol/L (8-16); CALCIUM, TOTAL 9.8 mg/dL (8.8-10.5); CARBON DIOXIDE 29 mmol/L (22-29); CHLORIDE 97 mmol/L (98-107); CREATININE 1.19 mg/dL (0.60-1.30); GLOMERULAR FILTR. RATE CALC > 60 mL/min (>60); GLUCOSE,RANDOM 234 mg/dL (70-110); POTASSIUM 3.9 mmol/L (3.5-5.1); SODIUM SERUM 135 mmol/L (136-145); UREA NITROGEN, BLOOD 19 mg/dL (7-18)
[2023-03-29 22:22] LABS: ALCOHOL, BLOOD (SERUM) < 3 mg/dL (0-10)
[2023-03-29 22:24] LABS: ALANINE AMINOTRANSFERASE 17 U/L (12-78); ALBUMIN 3.8 g/dL (3.4-5.0); ALKALINE PHOSPHATASE 83 U/L (46-116); ASPARTATE AMINOTRANSFERASE 21 U/L (15-37); BILIRUBIN,TOTAL 0.4 mg/dL (0.1-1.0); LIPASE 37 U/L (16-77); TOTAL PROTEIN, SERUM 8.1 g/dL (6.4-8.2)
[2023-03-29 22:29] LABS: TROPONIN I-HIGH SENSITIVITY 23 ng/L (<76)
[2023-03-29 22:39] LABS: B-TYPE NATRIURETIC PEPTIDE 120 pg/mL (0-100)
[2023-03-29 22:52] LABS: LACTIC ACID 1.2 mmol/L (0.4-2.0)
[2023-03-29] MEDS: ONDANSETRON HCL 4 MG TABLET PO ONE (23:26)
[2023-03-30] MEDS: PANTOPRAZOLE SODIUM 40 MG/VIAL IVP ONE (00:30)
[2023-03-30] MEDS: METOCLOPRAMIDE HCL 5 MG/ML 2 ML VIAL IVP ONE ×2 (00:30→02:57)
[2023-03-30] MEDS: SODIUM CHLORIDE 0.9% 1,000 ML IV ONE (00:31)
[2023-03-30] MEDS ORDERED: PANT-31 PO (02:45)
[2023-03-30 02:59] VITALS: BP 132/79; PULSE 88; RESP 16; TEMP 98
== END 2023-03-30 03:01 | disposition home or self-care (01) ==
LOC: EMS 21:33
DX: K29.70 Gastritis, unspecified, without bleeding (principal); B96.89 Other specified bacterial agents as the cause of diseases classified elsewhere; R11.2 Nausea with vomiting, unspecified; E11.9 Type 2 diabetes mellitus without complications; I10 Essential (primary) hypertension; G89.29 Other chronic pain; F17.210 Nicotine dependence, cigarettes, uncomplicated; F12.90 Cannabis use, unspecified, uncomplicated; F15.90 Other stimulant use, unspecified, uncomplicated; Z90.49 Acquired absence of other specified parts of digestive tract; Z98.890 Other specified postprocedural states
CPT/HCPCS: 99285; 70450; 71045; 80053; 82962; 83605; 83690; 83880; 84484; 85025; 36415; 93005; 96374; 96361; 96375; 96376; G0480; Q0162; J2765; C9113; J7030

== ENCOUNTER 2023-04-15 08:55 | Emergency (ER) | payer MEDICARE, MEDICAID ==
[~2023-04-15] VITALS: Ht 177.8 cm; Wt 81.8 kg
[~2023-04-15 08:55] MED LIST changes: +PANT-31 PO
[2023-04-15 09:06] VITALS: TEMP 98
[2023-04-15] MEDS: HYDROCODONE/ACETAMINOPHEN 5-325 MG TABLET PO ONE (09:53)
[2023-04-15 10:14] LABS: BASOPHILS % (AUTO) 0.3 % (0.0-2.0); EOSINOPHILS % (AUTO) 6.2 % (1.0-6.0); HEMOGLOBIN 13.3 g/dL (13.5-17.5); LYMPHOCYTES # (AUTO) 0.9 K/uL (1.0-4.8); LYMPHOCYTES % (AUTO) 17.3 % (22.0-44.0); MEAN CORPUSCULAR HEMOGLOBIN 32.3 pg (26.0-34.0); MEAN CORPUSCULAR HGB CONC 34.9 G/dL (31.0-37.0); MEAN CORPUSCULAR VOLUME 93 fL (80-100); MONOCYTES # (AUTO) 0.5 K/uL (0.1-1.0); MONOCYTES % (AUTO) 10.4 % (2.0-9.0); NEUTROPHILS # (AUTO) 3.3 K/uL (1.8-7.7); NEUTROPHILS % (AUTO) 65.8 % (40.0-70.0); PLATELET COUNT (AUTO) 164 K/uL (150-450); RED BLOOD CELL COUNT(AUTO) 4.11 MIL/uL (4.50-5.90); RED CELL DISTRIBUTION WIDTH 14.1 % (11.5-14.5)
[2023-04-15 10:26] LABS: PROTHROMBIN TIME 10.6 SEC (9.4-11.6)
[2023-04-15 10:35] LABS: TROPONIN I-HIGH SENSITIVITY 16 ng/L (<76)
[2023-04-15 10:40] LABS: B-TYPE NATRIURETIC PEPTIDE 56 pg/mL (0-100)
[2023-04-15 10:57] LABS: ALANINE AMINOTRANSFERASE 31 U/L (12-78); ALKALINE PHOSPHATASE 77 U/L (46-116); ANION GAP 7 mmol/L (8-16); ASPARTATE AMINOTRANSFERASE 12 U/L (15-37); BILIRUBIN,TOTAL 0.2 mg/dL (0.1-1.0); CALCIUM, TOTAL 8.9 mg/dL (8.8-10.5); CARBON DIOXIDE 27 mmol/L (22-29); CHLORIDE 102 mmol/L (98-107); CREATINE KINASE, TOTAL ONLY 123 U/L (39-308); CREATININE 0.93 mg/dL (0.60-1.30); GLOMERULAR FILTR. RATE CALC > 60 mL/min (>60); GLUCOSE,RANDOM 175 mg/dL (70-110); POTASSIUM 3.6 mmol/L (3.5-5.1); SODIUM SERUM 136 mmol/L (136-145); TOTAL PROTEIN, SERUM 6.8 g/dL (6.4-8.2); UREA NITROGEN, BLOOD 10 mg/dL (7-18)
[2023-04-15] MEDS: KETOROLAC TROMETHAMINE 30 MG/ML VIAL IVP ONE (11:14)
[2023-04-15 12:21] LABS: GLUCOMETER DEV NAME(LOC) ERT.5; GLUCOSE,POINT OF CARE 176 MG/DL (70-110)
[2023-04-15 12:42] VITALS: BP 156/88; PULSE 86; RESP 14
[2023-04-15 12:47] LABS: TROPONIN I-HIGH SENSITIVITY 16 ng/L (<76)
== END 2023-04-15 13:31 | disposition home or self-care (01) ==
LOC: EMS 08:58
DX: R07.89 Other chest pain (principal); E11.9 Type 2 diabetes mellitus without complications; I10 Essential (primary) hypertension; G89.29 Other chronic pain; F17.210 Nicotine dependence, cigarettes, uncomplicated; F12.90 Cannabis use, unspecified, uncomplicated; F15.90 Other stimulant use, unspecified, uncomplicated; Z90.49 Acquired absence of other specified parts of digestive tract; Z98.890 Other specified postprocedural states
CPT/HCPCS: 99285; 96374; 71045; 80053; 82550; 82962; 83880; 84484; 85025; 85610; 85730; 36415; 93005; J1885

== ENCOUNTER 2023-04-21 23:20 | Emergency (ER) | payer MEDICARE, MEDICAID ==
[~2023-04-21] VITALS: Ht 177.8 cm; Wt 94.0 kg
[2023-04-21 23:30] VITALS: TEMP 98.3
[2023-04-22 02:07] VITALS: BP 132/81; PULSE 84; RESP 20
[2023-04-22] MEDS ORDERED: KETOROLAC TROMETHAMINE 30 MG/ML VIAL IM ONE (02:15)
[2023-04-22] MEDS: ONDANSETRON HCL 4 MG/2 ML VIAL IM ONE ×2 (02:19→03:01)
[2023-04-22] MEDS: KETOROLAC TROMETHAMINE 60 MG/2 ML VIAL IM ONE (02:19)
[2023-04-22] MEDS ORDERED: ONDA-104 PO (02:34)
== END 2023-04-22 03:24 | disposition home or self-care (01) ==
LOC: EMS 23:21
DX: R11.2 Nausea with vomiting, unspecified (principal); E11.9 Type 2 diabetes mellitus without complications; I10 Essential (primary) hypertension; F17.210 Nicotine dependence, cigarettes, uncomplicated; F12.90 Cannabis use, unspecified, uncomplicated; F15.90 Other stimulant use, unspecified, uncomplicated; Z86.73 Personal history of transient ischemic attack (TIA), and cerebral infarction without residual deficits; Z90.49 Acquired absence of other specified parts of digestive tract
CPT/HCPCS: 99284; 96372; J1885; J2405

== ENCOUNTER 2023-09-05 14:25 | Emergency (ER) | payer MEDICARE, MEDICAID ==
[~2023-09-05] VITALS: Ht 177.8 cm; Wt 78.7 kg
[~2023-09-05 14:25] MED LIST changes: +ONDA-104 PO
[2023-09-05 14:39] VITALS: TEMP 98
[2023-09-05] MEDS: SODIUM CHLORIDE 0.9% 1,000 ML IV ONE (14:56)
[2023-09-05] MEDS: ONDANSETRON HCL 4 MG/2 ML VIAL IVP ONE (14:56)
[2023-09-05 15:00] LABS: BASOPHILS % (AUTO) 0.1 % (0.0-2.0); EOSINOPHILS % (AUTO) 0.8 % (1.0-6.0); HEMATOCRIT 44.2 % (41-53); HEMOGLOBIN 14.7 g/dL (13.5-17.5); LYMPHOCYTES # (AUTO) 1.1 K/uL (1.0-4.8); LYMPHOCYTES % (AUTO) 13.9 % (22.0-44.0); MEAN CORPUSCULAR HEMOGLOBIN 31.2 pg (26.0-34.0); MEAN CORPUSCULAR HGB CONC 33.4 G/dL (31.0-37.0); MEAN CORPUSCULAR VOLUME 94 fL (80-100); MONOCYTES # (AUTO) 0.7 K/uL (0.1-1.0); MONOCYTES % (AUTO) 8.9 % (2.0-9.0); NEUTROPHILS # (AUTO) 6.2 K/uL (1.8-7.7); NEUTROPHILS % (AUTO) 76.3 % (40.0-70.0); PLATELET COUNT (AUTO) 252 K/uL (150-450); RED BLOOD CELL COUNT(AUTO) 4.72 MIL/uL (4.50-5.90); RED CELL DISTRIBUTION WIDTH 14.2 % (11.5-14.5); WHITE BLOOD COUNT (AUTO) 8.2 K/uL (4.5-11.0)
[2023-09-05 15:09] LABS: ANION GAP 10 mmol/L (8-16); CALCIUM, TOTAL 9.6 mg/dL (8.8-10.5); CARBON DIOXIDE 28 mmol/L (22-29); CHLORIDE 100 mmol/L (98-107); CREATININE 1.38 mg/dL (0.60-1.30); GLOMERULAR FILTR. RATE CALC > 60 mL/min (>60); GLUCOSE,RANDOM 178 mg/dL (70-110); POTASSIUM 3.4 mmol/L (3.5-5.1); SODIUM SERUM 138 mmol/L (136-145); UREA NITROGEN, BLOOD 15 mg/dL (7-18)
[2023-09-05 15:13] LABS: PROTHROMBIN TIME 10.8 SEC (9.4-11.6)
[2023-09-05 15:19] LABS: AMMONIA 15 umol/L (11-32); TROPONIN I-HIGH SENSITIVITY 12 ng/L (<76)
[2023-09-05 15:24] LABS: ALCOHOL, BLOOD (SERUM) < 3 mg/dL (0-10)
[2023-09-05 15:34] LABS: ALANINE AMINOTRANSFERASE 22 U/L (12-78); ALBUMIN 3.9 g/dL (3.4-5.0); ALKALINE PHOSPHATASE 86 U/L (46-116); ASPARTATE AMINOTRANSFERASE 15 U/L (15-37); BILIRUBIN,TOTAL 0.8 mg/dL (0.1-1.0); CREATINE KINASE, TOTAL ONLY 172 U/L (39-308); TOTAL PROTEIN, SERUM 8.5 g/dL (6.4-8.2)
[2023-09-05 15:34] LABS: APPEARANCE,URINE HAZY (CLEAR); COLOR,URINE YELLOW (YELLOW); GLUCOSE, URINE (UA) NEGATIVE (NEGATIVE); KETONES,URINE NEGATIVE (NEGATIVE); LEUKOCYTE ESTERASE ,URINE NEGATIVE (NEGATIVE); NITRATE,URINE NEGATIVE (NEGATIVE); OCCULT BLOOD,URINE NEGATIVE (NEGATIVE); PH,URINE 5.5 (5.0-8.0); PH,URINE DRUG SCREEN 5.5 (5.0-8.0); PROTEIN,URINE 30-70 mg/dL (NEGATIVE); SPECIFIC GRAVITIY, URINE 1.028 (1.003-1.030); UROBILINOGEN,URINE <=1.0 mg/dL (<=1.0)
[2023-09-05 15:40] LABS: ALCOHOL, URINE DRUG SCREEN NEGATIVE (NEGATIVE); AMPHET/METH SCREEN,URINE POSITIVE (NEGATIVE); BARBITURATE SCREEN, URINE NEGATIVE (NEGATIVE); BENZODIAZEPINES SCREEN,URINE NEGATIVE (NEGATIVE); BILIRUBIN,URINE SMALL (NEGATIVE); CANNABINOID SCREEN,URINE POSITIVE (NEGATIVE); COCAINE SCREEN,URINE NEGATIVE (NEGATIVE); METHADONE SCREEN, URINE NEGATIVE (NEGATIVE); OPIATE SCREEN,URINE NEGATIVE (NEGATIVE); PHENCYCLIDINE SCREEN,URINE POSITIVE (NEGATIVE)
[2023-09-05 15:49] LABS: LACTIC ACID 1.5 mmol/L (0.4-2.0)
[2023-09-05 18:49] VITALS: BP 136/92; PULSE 91; RESP 18
== END 2023-09-05 19:22 | disposition home or self-care (01) ==
LOC: EMS 14:25
DX: G92.9 Unspecified toxic encephalopathy (principal); F10.10 Alcohol abuse, uncomplicated; E11.9 Type 2 diabetes mellitus without complications; I10 Essential (primary) hypertension; F17.210 Nicotine dependence, cigarettes, uncomplicated; F12.90 Cannabis use, unspecified, uncomplicated; F15.90 Other stimulant use, unspecified, uncomplicated; Z86.73 Personal history of transient ischemic attack (TIA), and cerebral infarction without residual deficits; Z90.49 Acquired absence of other specified parts of digestive tract
CPT/HCPCS: 99291; 96374; 70450; 71045; 96361; 80053; 81003; 82140; 82550; 83605; 84484; 85025; 85610; 85730; 87040; 36415; 93005; 80307; G0480; J2405; J7030; 51702

== ENCOUNTER 2024-01-06 22:26 | Emergency (ER) | payer MEDICARE, MEDICAID ==
[~2024-01-06] VITALS: Ht 180.3 cm; Wt 79.2 kg
[~2024-01-06 22:26] MED LIST changes: -BUPR300T53 PO; -MAG30ORA11 PO; -PANT40TA54 PO; +SERT-439 PO
[2024-01-06 22:38] VITALS: TEMP 97.9
[2024-01-06 23:04] LABS: BASOPHILS % (AUTO) 0.1 % (0.0-2.0); EOSINOPHILS % (AUTO) 0.3 % (1.0-6.0); HEMATOCRIT 46.7 % (41-53); HEMOGLOBIN 15.6 g/dL (13.5-17.5); LYMPHOCYTES # (AUTO) 0.8 K/uL (1.0-4.8); LYMPHOCYTES % (AUTO) 6.5 % (22.0-44.0); MEAN CORPUSCULAR HEMOGLOBIN 31.7 pg (26.0-34.0); MEAN CORPUSCULAR HGB CONC 33.5 G/dL (31.0-37.0); MEAN CORPUSCULAR VOLUME 95 fL (80-100); MONOCYTES # (AUTO) 1.5 K/uL (0.1-1.0); MONOCYTES % (AUTO) 11.4 % (2.0-9.0); NEUTROPHILS # (AUTO) 10.5 K/uL (1.8-7.7); NEUTROPHILS % (AUTO) 81.7 % (40.0-70.0); PLATELET COUNT (AUTO) 161 K/uL (150-450); RED BLOOD CELL COUNT(AUTO) 4.94 MIL/uL (4.50-5.90); RED CELL DISTRIBUTION WIDTH 14.7 % (11.5-14.5); WHITE BLOOD COUNT (AUTO) 12.9 K/uL (4.5-11.0)
[2024-01-06 23:14] LABS: ANION GAP 10 mmol/L (8-16); CALCIUM, TOTAL 9.4 mg/dL (8.8-10.5); CARBON DIOXIDE 27 mmol/L (22-29); CHLORIDE 102 mmol/L (98-107); CREATININE 1.19 mg/dL (0.60-1.30); GLOMERULAR FILTR. RATE CALC > 60 mL/min (>60); GLUCOSE,RANDOM 166 mg/dL (70-110); POTASSIUM 3.5 mmol/L (3.5-5.1); SODIUM SERUM 139 mmol/L (136-145); UREA NITROGEN, BLOOD 20 mg/dL (7-18)
[2024-01-06 23:17] LABS: ALCOHOL, BLOOD (SERUM) < 3 mg/dL (0-10)
[2024-01-06 23:19] LABS: ALANINE AMINOTRANSFERASE 21 U/L (12-78); ALBUMIN 3.8 g/dL (3.4-5.0); ALKALINE PHOSPHATASE 74 U/L (46-116); ASPARTATE AMINOTRANSFERASE 24 U/L (15-37); BILIRUBIN,TOTAL 0.8 mg/dL (0.1-1.0); LIPASE 15 U/L (16-77); TOTAL PROTEIN, SERUM 7.8 g/dL (6.4-8.2)
[2024-01-06] MEDS: SODIUM CHLORIDE 0.9% 1,000 ML IV ONE (23:45)
[2024-01-06] MEDS: PANTOPRAZOLE SODIUM 40 MG/VIAL IVP ONE (23:45)
[2024-01-07] MEDS ORDERED: ONDA-104 PO (01:23)
[2024-01-07] MEDS: PROCHLORPERAZINE EDISYLATE 5 MG/ML 2 ML VIAL IVP ONE (02:17)
[2024-01-07 02:27] VITALS: BP 132/77; PULSE 88; RESP 20; O2SAT 98
== END 2024-01-07 04:12 | disposition home or self-care (01) ==
LOC: EMS 22:26
DX: R10.13 Epigastric pain (principal); R19.7 Diarrhea, unspecified; R11.2 Nausea with vomiting, unspecified; E11.9 Type 2 diabetes mellitus without complications; I10 Essential (primary) hypertension; F12.90 Cannabis use, unspecified, uncomplicated; F17.210 Nicotine dependence, cigarettes, uncomplicated; Z79.82 Long term (current) use of aspirin; Z79.84 Long term (current) use of oral hypoglycemic drugs; Z90.49 Acquired absence of other specified parts of digestive tract; Z79.899 Other long term (current) drug therapy
CPT/HCPCS: 80048; 80076; 83690; 85025; 99284; 96361; 96374; 96375; G0480; C9113; J7030; J0780; J2471

== ENCOUNTER 2024-05-03 19:53 | Emergency (ER) | payer MEDICARE, MEDICAID ==
[~2024-05-03] VITALS: Ht 182.9 cm; Wt 86.4 kg
[2024-05-03 20:04] VITALS: TEMP 98.2
[2024-05-03 20:52] LABS: BASOPHILS % (AUTO) 0.9 % (0.0-2.0); EOSINOPHILS % (AUTO) 1.2 % (1.0-6.0); HEMATOCRIT 37.7 % (41-53); HEMOGLOBIN 13.1 g/dL (13.5-17.5); LYMPHOCYTES # (AUTO) 1.5 K/uL (1.0-4.8); LYMPHOCYTES % (AUTO) 29.3 % (22.0-44.0); MEAN CORPUSCULAR HEMOGLOBIN 31.9 pg (26.0-34.0); MEAN CORPUSCULAR HGB CONC 34.7 G/dL (31.0-37.0); MEAN CORPUSCULAR VOLUME 92 fL (80-100); MONOCYTES # (AUTO) 0.7 K/uL (0.1-1.0); MONOCYTES % (AUTO) 13.9 % (2.0-9.0); NEUTROPHILS # (AUTO) 2.9 K/uL (1.8-7.7); NEUTROPHILS % (AUTO) 54.7 % (40.0-70.0); PLATELET COUNT (AUTO) 190 K/uL (150-450); RED BLOOD CELL COUNT(AUTO) 4.09 MIL/uL (4.50-5.90); RED CELL DISTRIBUTION WIDTH 13.2 % (11.5-14.5); WHITE BLOOD COUNT (AUTO) 5.3 K/uL (4.5-11.0)
[2024-05-03 21:02] LABS: ANION GAP 10 mmol/L (8-16); CALCIUM, TOTAL 9.1 mg/dL (8.8-10.5); CARBON DIOXIDE 26 mmol/L (22-29); CHLORIDE 101 mmol/L (98-107); CREATININE 0.92 mg/dL (0.60-1.30); GLOMERULAR FILTR. RATE CALC > 60 mL/min (>60); GLUCOSE,RANDOM 301 mg/dL (70-110); POTASSIUM 3.9 mmol/L (3.5-5.1); SODIUM SERUM 137 mmol/L (136-145); UREA NITROGEN, BLOOD 14 mg/dL (7-18)
[2024-05-03 21:07] LABS: ALBUMIN 3.5 g/dL (3.4-5.0); BILIRUBIN,DIRECT 0.1 mg/dL (0.00-0.20); BILIRUBIN,TOTAL 0.5 mg/dL (0.1-1.0); TOTAL PROTEIN, SERUM 7.5 g/dL (6.4-8.2)
[2024-05-03 21:10] LABS: B-TYPE NATRIURETIC PEPTIDE 8 pg/mL (0-100)
[2024-05-03 21:12] LABS: TROPONIN I-HIGH SENSITIVITY 18 ng/L (<76)
[2024-05-03 21:23] LABS: ACETONE,BLOOD NEGATIVE (NEGATIVE)
[2024-05-04 05:35] VITALS: BP 150/85; PULSE 78; RESP 16; O2SAT 97
== END 2024-05-04 06:03 | disposition home or self-care (01) ==
LOC: EMS 19:53
DX: F19.10 Other psychoactive substance abuse, uncomplicated (principal); E11.9 Type 2 diabetes mellitus without complications; F12.90 Cannabis use, unspecified, uncomplicated; G89.29 Other chronic pain; I10 Essential (primary) hypertension; F15.90 Other stimulant use, unspecified, uncomplicated; F17.210 Nicotine dependence, cigarettes, uncomplicated; Z79.82 Long term (current) use of aspirin; Z79.84 Long term (current) use of oral hypoglycemic drugs; Z79.899 Other long term (current) drug therapy; Z86.73 Personal history of transient ischemic attack (TIA), and cerebral infarction without residual deficits; Z90.49 Acquired absence of other specified parts of digestive tract; Z95.2 Presence of prosthetic heart valve
CPT/HCPCS: 71045; 80048; 80076; 82009; 82140; 83880; 84484; 85025; 93005; 99285; 36415-L1; 36415-TC

== ENCOUNTER 2024-07-10 08:22 | Emergency (ER) | payer MEDICARE, MEDICAID ==
[~2024-07-10] VITALS: Ht 180.3 cm; Wt 79.5 kg
[2024-07-10 08:46] LABS: GLUCOMETER DEV NAME(LOC) ER.7; GLUCOSE,POINT OF CARE 370 MG/DL (70-110)
[2024-07-10] MEDS: SODIUM CHLORIDE 0.9% 1,000 ML IV ONE (09:30)
[2024-07-10] MEDS: AmLODIPine BESYLATE 10 MG TABLET PO ONE (09:50)
[2024-07-10] MEDS: METOPROLOL SUCCINATE 25 MG ER TABLET PO ONE (10:04)
[2024-07-10] MEDS: MetFORMIN HCL 500 MG ER TABLET PO ONE (10:04)
[2024-07-10 10:14] LABS: BASOPHILS % (AUTO) 0.3 % (0.0-2.0); EOSINOPHILS % (AUTO) 1.3 % (1.0-6.0); HEMATOCRIT 35.7 % (41-53); HEMOGLOBIN 12.2 g/dL (13.5-17.5); LYMPHOCYTES # (AUTO) 1.1 K/uL (1.0-4.8); MEAN CORPUSCULAR HEMOGLOBIN 31.2 pg (26.0-34.0); MEAN CORPUSCULAR HGB CONC 34.2 G/dL (31.0-37.0); MEAN CORPUSCULAR VOLUME 91 fL (80-100); MONOCYTES # (AUTO) 0.3 K/uL (0.1-1.0); MONOCYTES % (AUTO) 10.2 % (2.0-9.0); NEUTROPHILS # (AUTO) 1.8 K/uL (1.8-7.7); NEUTROPHILS % (AUTO) 55.2 % (40.0-70.0); PLATELET COUNT (AUTO) 150 K/uL (150-450); RED BLOOD CELL COUNT(AUTO) 3.91 MIL/uL (4.50-5.90); RED CELL DISTRIBUTION WIDTH 13.6 % (11.5-14.5); WHITE BLOOD COUNT (AUTO) 3.2 K/uL (4.5-11.0)
[2024-07-10 10:16] LABS: APPEARANCE,URINE CLEAR (CLEAR); BILIRUBIN,URINE NEGATIVE (NEGATIVE); COLOR,URINE LIGHT YELLOW (YELLOW); GLUCOSE, URINE (UA) >=1000 mg/dL (NEGATIVE); KETONES,URINE NEGATIVE (NEGATIVE); LEUKOCYTE ESTERASE ,URINE NEGATIVE (NEGATIVE); NITRATE,URINE NEGATIVE (NEGATIVE); OCCULT BLOOD,URINE NEGATIVE (NEGATIVE); PROTEIN,URINE NEGATIVE (NEGATIVE); SPECIFIC GRAVITIY, URINE 1.029 (1.003-1.030)
[2024-07-10 10:23] LABS: BACTERIA,URINE None Seen /HPF (None Seen); RBC,URINE None Seen /HPF (0-2); WBC,URINE None Seen /HPF (0-5)
[2024-07-10 10:24] LABS: ANION GAP 4 mmol/L (8-16); CALCIUM, TOTAL 6.9 mg/dL (8.8-10.5); CARBON DIOXIDE 27 mmol/L (22-29); CHLORIDE 107 mmol/L (98-107); CREATININE 0.74 mg/dL (0.60-1.30); GLOMERULAR FILTR. RATE CALC > 60 mL/min (>60); GLUCOSE,RANDOM 304 mg/dL (70-110); POTASSIUM 3.7 mmol/L (3.5-5.1); SODIUM SERUM 138 mmol/L (136-145); UREA NITROGEN, BLOOD 6 mg/dL (7-18)
[2024-07-10 10:28] LABS: ACETONE,BLOOD NEGATIVE (NEGATIVE)
[2024-07-10 10:31] LABS: CREATINE KINASE, TOTAL ONLY 94 U/L (39-308)
[2024-07-10 10:34] LABS: B-TYPE NATRIURETIC PEPTIDE 20 pg/mL (0-100); TROPONIN I-HIGH SENSITIVITY 16 ng/L (<76)
[2024-07-10 10:37] LABS: PROTHROMBIN TIME 10.9 SEC (9.4-11.6)
[2024-07-10 11:15] LABS: GLUCOMETER DEV NAME(LOC) ERT.7; GLUCOSE,POINT OF CARE 375 MG/DL (70-110)
[2024-07-10 11:35] LABS: ALCOHOL, URINE DRUG SCREEN NEGATIVE (NEGATIVE); AMPHET/METH SCREEN,URINE NEGATIVE (NEGATIVE); BARBITURATE SCREEN, URINE NEGATIVE (NEGATIVE); BENZODIAZEPINES SCREEN,URINE NEGATIVE (NEGATIVE); CANNABINOID SCREEN,URINE NEGATIVE (NEGATIVE); COCAINE SCREEN,URINE NEGATIVE (NEGATIVE); METHADONE SCREEN, URINE NEGATIVE (NEGATIVE); OPIATE SCREEN,URINE POSITIVE (NEGATIVE); PHENCYCLIDINE SCREEN,URINE NEGATIVE (NEGATIVE)
[2024-07-10 13:02] VITALS: BP 172/101; PULSE 76; RESP 20; O2SAT 98
== END 2024-07-10 13:19 | disposition home or self-care (01) ==
LOC: EMS 08:31
DX: R53.1 Weakness (principal); E11.9 Type 2 diabetes mellitus without complications; I10 Essential (primary) hypertension; F12.90 Cannabis use, unspecified, uncomplicated; R06.02 Shortness of breath; F17.210 Nicotine dependence, cigarettes, uncomplicated; F15.10 Other stimulant abuse, uncomplicated; Z79.82 Long term (current) use of aspirin; Z79.84 Long term (current) use of oral hypoglycemic drugs; Z86.73 Personal history of transient ischemic attack (TIA), and cerebral infarction without residual deficits; Z90.49 Acquired absence of other specified parts of digestive tract; Z79.899 Other long term (current) drug therapy
CPT/HCPCS: 99285; 96360; 96361; 71045; 80048; 81001; 82009; 82550; 82962; 83880; 84484; 85025; 85610; 85730; 36415; 93005; 80307; J7030